=== PATIENT | male | born 1995 | race Caucasian/White ===

== ENCOUNTER 2022-05-01 03:24 | Emergency (ER) | payer OTHER ==
--- NOTE | 2022-05-01 04:27 | NUR ---
CALLED TO TRIAGE NO ANSWER
--- NOTE | 2022-05-01 05:00 | NUR ---
CALLED TO TRIAGE STILL NO ANSWER
== END 2022-05-01 05:01 | disposition left against medical advice (07) ==
LOC: ER 03:24
DX: Z53.21 Procedure and treatment not carried out due to patient leaving prior to being seen by health care provider (principal)

== ENCOUNTER 2022-05-01 07:39 | Emergency (ER) | payer OTHER ==
--- NOTE | 2022-05-01 07:48 | NUR ---
called to triage, no response. pt eloped without being seen.
--- NOTE | 2022-05-01 07:50 | NUR ---
admitting dept saw the patient walked out of the waiting room. pt left without being seen.
== END 2022-05-01 07:53 | disposition left against medical advice (07) ==
LOC: ER 07:45
DX: Z53.21 Procedure and treatment not carried out due to patient leaving prior to being seen by health care provider (principal)